=== PATIENT | female | born 1940 | race Caucasian/White ===

== ENCOUNTER → 2016-08-18 17:23 | Outpatient (CLI) | payer MEDICARE, BC | END | disposition home or self-care (01) | LOC: D.MAMMO 13:00 | DX: Z12.31 Encounter for screening mammogram for malignant neoplasm of breast (principal) ==

== ENCOUNTER → 2016-12-29 12:39 | Outpatient (CLI) | payer MEDICARE, BC | END | disposition home or self-care (01) | LOC: D.MRI 12:39 | DX: M25.561 Pain in right knee (principal); M71.21 Synovial cyst of popliteal space [Baker], right knee ==

== ENCOUNTER 2017-08-07 15:05 | Inpatient (IN) | payer MEDICARE, BC ==
[~2017-08-07] VITALS: Ht 162.6 cm; Wt 85.3 kg
[2017-08-07] VITALS (10 sets, daily range): BP systolic 113–148; BP diastolic 71–98; BMI 32.3
[2017-08-07 16:40] LABS: BASOPHILS 0.3 % (0-2); EOSINOPHILS 0.1 % (0-7); HEMATOCRIT 48.2 % (36.0-48.0); HEMOGLOBIN 17.8 g/dL (12-16); IMMATURE GRANULOCYTES 0.6 % (0-5); LYMPHOCYTES 15.9 % (15-50); MCH 29.9 pg (26.0-34.0); MCHC 36.9 g/dL (31.0-37.0); MCV 80.9 fL (80.0-100.0); MEAN PLATELET VOLUME 10.7 fL (7.4-10.4); MONOCYTES 6.1 % (2-11); PLATELET COUNT 320 10x3/uL (130-400); RBC 5.96 10x6/uL (4.00-5.40); RDW 12.7 % (11.5-14.5); WBC 16.6 10x3/uL (4.8-10.8)
[2017-08-07 16:49] LABS: HEMOGLOBIN A1C 10.2 % (4.8-6.0)
[2017-08-07 17:45] LABS: ALBUMIN 3.9 g/dL (3.4-5.0); BILIRUBIN - TOTAL 0.97 mg/dL (0.2-1.3); CARBON DIOXIDE 33.4 mmol/L (21.0-32.0); PROTEIN - SERUM 7.3 g/dL (6.4-8.2); THYROID STIMULATING HORMONE 1.87 uIU/mL (0.36-3.74)
[2017-08-07 17:56] LABS: CALCIUM 10.2 mg/dL (8.5-10.1); CREATININE - SERUM 1.3 mg/dL (0.6-1.3)
[2017-08-07 18:01] LABS: ANION GAP 16.5 mmol/L (8-16)
[2017-08-07 18:02] LABS: POTASSIUM - SERUM 2.9 mmol/L (3.5-5.1)
[2017-08-08] VITALS (14 sets, daily range): BP systolic 98–144; BP diastolic 65–89; Ht 162.6 cm; Wt 85.3 kg
[2017-08-08 03:49] LABS: BASOPHILS 0.2 % (0-2); EOSINOPHILS 0.8 % (0-7); HEMATOCRIT 45.1 % (36.0-48.0); HEMOGLOBIN 16.3 g/dL (12-16); IMMATURE GRANULOCYTES 0.8 % (0-5); LYMPHOCYTES 25.2 % (15-50); MCH 29.4 pg (26.0-34.0); MCHC 36.1 g/dL (31.0-37.0); MCV 81.3 fL (80.0-100.0); MEAN PLATELET VOLUME 11.3 fL (7.4-10.4); MONOCYTES 7.1 % (2-11); NEUTROPHILS 65.9 % (40-80); PLATELET COUNT 256 10x3/uL (130-400); RBC 5.55 10x6/uL (4.00-5.40); RDW 12.8 % (11.5-14.5); WBC 15.5 10x3/uL (4.8-10.8)
[2017-08-08 03:55] LABS: KETONE - SERUM SMALL mg/dL (NEGATIVE)
[2017-08-08 04:24] LABS: ALBUMIN 3.3 g/dL (3.4-5.0); ALKALINE PHOSPHATASE 51 U/L (46-116); ALT (SGPT) 35 U/L (10-68); BILIRUBIN - TOTAL 0.88 mg/dL (0.2-1.3); CARBON DIOXIDE 36.8 mmol/L (21.0-32.0); CHLORIDE - SERUM 86 mmol/L (98-107); CREATININE - SERUM 1.1 mg/dL (0.6-1.3); MAGNESIUM - SERUM 1.8 mg/dL (1.8-2.4); PHOSPHOROUS 4.4 mg/dL (2.5-4.9); PROTEIN - SERUM 6.8 g/dL (6.4-8.2); SODIUM 131 mmol/L (136-145); UREA NITROGEN 23 mg/dL (7-18); eGFR NON AFRICAN AMERICAN 51 mL/min (90-120)
[2017-08-08 04:33] LABS: CALC OSMOLALITY 269 mosm/kg (275-300); GLUCOSE 160 mg/dL (74-106)
[2017-08-08 04:34] LABS: POTASSIUM - SERUM 2.3 mmol/L (3.5-5.1)
[2017-08-08 05:35] LABS: APPEARANCE CLEAR (CLEAR); BACTERIA FEW /hpf (NONE SEEN); BILIRUBIN NEGATIVE (NEGATIVE); COLOR YELLOW (YELLOW); EPITHELIAL CELLS 0-5 /hpf (0-5); GLUCOSE NEGATIVE (NEGATIVE); HYALINE CAST 0-5 /lpf (NONE SEEN); KETONE NEGATIVE (NEGATIVE); NITRITE NEGATIVE (NEGATIVE); PROTEIN NEGATIVE (NEGATIVE); RED CELLS - URINE NONE SEEN /hpf (0-5); SPECIFIC GRAVITY 1.015 (1.005-1.020); UROBILINOGEN NORMAL (NORMAL); WHITE CELLS - URINE 0-5 /hpf (0-5)
[2017-08-09 02:00] VITALS: BP 131/77
[2017-08-09 04:00] VITALS: BP 114/59
[2017-08-09 06:21] LABS: BASOPHILS 0.3 % (0-2); EOSINOPHILS 1.5 % (0-7); HEMATOCRIT 41.7 % (36.0-48.0); HEMOGLOBIN 14.3 g/dL (12-16); IMMATURE GRANULOCYTES 0.7 % (0-5); LYMPHOCYTES 31.4 % (15-50); MCH 28.8 pg (26.0-34.0); MCHC 34.3 g/dL (31.0-37.0); MEAN PLATELET VOLUME 10.6 fL (7.4-10.4); MONOCYTES 9.6 % (2-11); NEUTROPHILS 56.5 % (40-80); PLATELET COUNT 231 10x3/uL (130-400); RBC 4.97 10x6/uL (4.00-5.40); RDW 13.2 % (11.5-14.5)
[2017-08-09 06:31] LABS: MCV 83.9 fL (80.0-100.0); WBC 8.8 10x3/uL (4.8-10.8)
[2017-08-09 06:50] LABS: ANION GAP 8.1 mmol/L (8-16); CALCIUM 8.3 mg/dL (8.5-10.1); CARBON DIOXIDE 33.3 mmol/L (21.0-32.0)
[2017-08-09 06:53] LABS: CREATININE - SERUM 0.8 mg/dL (0.6-1.3); POTASSIUM - SERUM 3.4 mmol/L (3.5-5.1)
[2017-08-09 10:57] VITALS: BP 116/60
[2017-08-09 17:18] VITALS: BP 117/52
[2017-08-09 20:00] VITALS: BP 125/64
[2017-08-10 05:00] VITALS: BP 114/72
[2017-08-10 09:38] VITALS: BP 123/55
[2017-08-10 13:45] VITALS: BP 128/56
[2017-08-10 16:13] LABS: BASOPHILS 0.2 % (0-2); EOSINOPHILS 1.4 % (0-7); HEMATOCRIT 39.2 % (36.0-48.0); HEMOGLOBIN 13.3 g/dL (12-16); IMMATURE GRANULOCYTES 0.7 % (0-5); LYMPHOCYTES 18.5 % (15-50); MCH 28.9 pg (26.0-34.0); MCHC 33.9 g/dL (31.0-37.0); MEAN PLATELET VOLUME 10.6 fL (7.4-10.4); MONOCYTES 8.7 % (2-11); NEUTROPHILS 70.5 % (40-80); RBC 4.61 10x6/uL (4.00-5.40); RDW 13.2 % (11.5-14.5)
[2017-08-10 16:16] LABS: PLATELET COUNT 177 10x3/uL (130-400)
[2017-08-10 16:41] LABS: ALBUMIN 2.8 g/dL (3.4-5.0); ANION GAP 13.3 mmol/L (8-16); BILIRUBIN - TOTAL 0.5 mg/dL (0.2-1.3); CALCIUM 7.7 mg/dL (8.5-10.1); CARBON DIOXIDE 26.4 mmol/L (21.0-32.0); CREATININE - SERUM 0.9 mg/dL (0.6-1.3); POTASSIUM - SERUM 3.7 mmol/L (3.5-5.1); PROTEIN - SERUM 5.5 g/dL (6.4-8.2)
[2017-08-10 17:18] VITALS: BP 122/56
[2017-08-10 22:28] VITALS: BP 135/63
[2017-08-11 02:16] VITALS: BP 135/72
[2017-08-11] MEDS ORDERED: GLUCOTROL XL 5 M5 MG PO (03:25)
[2017-08-11] MEDS ORDERED: HCTZ25 MG PO (03:25)
[2017-08-11] MEDS ORDERED: GLUCOPHAGE1000 MG PO (03:25)
[2017-08-11] MEDS ORDERED: ZOLOFT100 MG PO (03:26)
[2017-08-11] MEDS ORDERED: K-TAB10 MEQ PO (03:27)
[2017-08-11] MEDS ORDERED: OMEPRAZOLE20 M1 PO (03:28)
[2017-08-11 04:00] VITALS: BP 122/65
[2017-08-11 06:12] LABS: BASOPHILS 0.2 % (0-2); EOSINOPHILS 1.4 % (0-7); HEMATOCRIT 39.6 % (36.0-48.0); HEMOGLOBIN 13.5 g/dL (12-16); LYMPHOCYTES 30.7 % (15-50); MCHC 34.1 g/dL (31.0-37.0); MEAN PLATELET VOLUME 10.5 fL (7.4-10.4); MONOCYTES 7.4 % (2-11); NEUTROPHILS 59.3 % (40-80); PLATELET COUNT 187 10x3/uL (130-400); RBC 4.66 10x6/uL (4.00-5.40); RDW 13.3 % (11.5-14.5); WBC 9.2 10x3/uL (4.8-10.8)
[2017-08-11 06:34] LABS: ALBUMIN 2.7 g/dL (3.4-5.0); ANION GAP 13.6 mmol/L (8-16); BILIRUBIN - TOTAL 0.66 mg/dL (0.2-1.3); CARBON DIOXIDE 26.2 mmol/L (21.0-32.0); CREATININE - SERUM 0.9 mg/dL (0.6-1.3); POTASSIUM - SERUM 3.8 mmol/L (3.5-5.1)
[2017-08-11 08:57] VITALS: BP 111/60
[2017-08-11 12:56] VITALS: BP 119/64
[2017-08-11] MEDS ORDERED: NORVASC10 MG PO (15:52)
[2017-08-11] MEDS ORDERED: Levaquin PO (15:53)
[2017-08-11] MEDS ORDERED: LEVAQUIN500 MG PO ×2 (15:53→15:54)
[2017-08-11 16:45] VITALS: BP 166/85
== END 2017-08-11 18:20 | disposition home health service (06) | DRG 638 ==
LOC: D.MS 15:05 → D.ICU 15:05 → D.MS 08-08 18:57
PROVIDERS: Emergency Medicine; Family Medicine; Internal Medicine Pulmonary Disease
PROC: 05HC33Z Insertion of Infusion Device into Left Basilic Vein, Percutaneous Approach (ICD-10-PCS; principal; 2017-08-08)
PROC: B54NZZA Ultrasonography of Left Upper Extremity Veins, Guidance (ICD-10-PCS; 2017-08-08)
DX: E11.65 Type 2 diabetes mellitus with hyperglycemia (principal); E87.1 Hypo-osmolality and hyponatremia; G72.81 Critical illness myopathy; E87.6 Hypokalemia; I10 Essential (primary) hypertension; K21.9 Gastro-esophageal reflux disease without esophagitis; D72.829 Elevated white blood cell count, unspecified; E86.0 Dehydration

== ENCOUNTER → 2017-08-21 15:20 | Outpatient (CLI) | payer MEDICARE, BC ==
[2017-08-08 10:03] VITALS: BMI 32.2
[~2017-08-21 15:20] MED LIST: GLUCOPHAGE1000 MG PO; GLUCOTROL XL 5 M5 MG PO; HCTZ25 MG PO; K-TAB10 MEQ PO; LEVAQUIN500 MG PO; Levaquin PO; NORVASC10 MG PO; OMEPRAZOLE20 M1 PO; ZOLOFT100 MG PO
== END | disposition home or self-care (01) ==
LOC: D.MAMMO 11:15
DX: Z12.31 Encounter for screening mammogram for malignant neoplasm of breast (principal)

== ENCOUNTER → 2018-08-22 17:50 | Outpatient (CLI) | payer MEDICARE, BC ==
[2017-08-08 10:03] VITALS: BMI 32.2
== END | disposition home or self-care (01) ==
LOC: D.MAMMO 08-03 11:45
DX: Z12.31 Encounter for screening mammogram for malignant neoplasm of breast (principal)

== ENCOUNTER → 2018-09-12 17:23 | Outpatient (CLI) | payer MEDICARE, BC ==
[2017-08-08 10:03] VITALS: BMI 32.2
== END | disposition home or self-care (01) ==
LOC: D.MAMMO 10:30
DX: R92.8 Other abnormal and inconclusive findings on diagnostic imaging of breast (principal)

== ENCOUNTER → 2020-02-12 10:23 | Outpatient (CLI) | payer MEDICARE, BC ==
[2017-08-08 10:03] VITALS: BMI 32.2
== END | disposition home or self-care (01) ==
LOC: D.HCCARDIO 10:23
PROVIDERS: ATTEND Internal Medicine Cardiovascular Disease
DX: R94.31 Abnormal electrocardiogram [ECG] [EKG] (principal)

== ENCOUNTER 2020-10-14 18:05 | Outpatient (CLI) | payer MEDICARE, BC ==
[2017-08-08 10:03] VITALS: BMI 32.2
== END 2020-10-14 23:59 | disposition home or self-care (01) ==
LOC: D.MAMMO 18:05
PROVIDERS: ATTEND Family Medicine
DX: Z12.31 Encounter for screening mammogram for malignant neoplasm of breast (principal)